=== PATIENT | female | born 1985 | race Caucasian/White ===

== ENCOUNTER 2023-03-03 09:30 | Outpatient (RCR) | payer OTHER, SELFPAY | END 2023-03-31 14:21 | disposition home or self-care (01) | PROVIDERS: PCP Family Medicine; Visit Provider Family Medicine | DX: M54.50 Low back pain, unspecified (principal); Z51.89 Encounter for other specified aftercare | CPT/HCPCS: 97110; 97162 ==

== ENCOUNTER 2025-06-21 12:00 | Outpatient (CLI) | payer BC, OTHER, SELFPAY | END 2025-06-21 12:01 | disposition home or self-care (01) | LOC: NFLDREF 06-29 03:13 | PROVIDERS: PCP Family Medicine; Referring Provider Family Medicine; Visit Provider Physician Assistant | DX: L02.91 Cutaneous abscess, unspecified (principal) | CPT/HCPCS: 87070; 87186 ==